=== PATIENT | male | born 1960 | race Caucasian/White ===

== ENCOUNTER 2017-02-12 07:30 | Inpatient (IN) ==
[~2017-02-12 07:30] MED LIST: ACETAMINOPHEN 500 MG TABLET PO ONE; CEFAZOLIN 1 G INJECTION IVP ONE; DEXAMETHASONE 4 MG/ML INJECTION IVP ONE; FAMOTIDINE PB 20 MG/50 ML BAG IV ONE; LIDOCAINE 1% (10mg/ml) 2mL INJ PF SDV ID ONE; MELOXICAM 15 MG TABLET PO ONE; METOCLOPRAMIDE 10mg/2ml INJECTION IVP ONE; NOZIN NASAL SWAB NAS ONE; ONDANSETRON 4 MG/2 ML INJECTION IVP ONE; TRANEXAMIC ACID 1,000 MG in NS 100 ML IV ONE
[2017-02-12] MEDS ORDERED: SALINE FLUSH 10ml SYRINGE IVF PRN (08:11)
[2017-02-12 08:27] VITALS: BMI 28.1
[2017-02-12] MEDS: LR 1,000 ML IV SCH ×2 (08:52→12:00)
[2017-02-12] MEDS ORDERED: ROPIVACAINE 0.5% (5mg/ml) 30ml INJ ONE ×2 (10:29→10:37)
--- NOTE | 2017-02-12 10:34 | Anesthesia Preoperative Report ---
Anesthesia Preoperative Record - Date and Time Date: 02/12/17 Preoperative Diagnosis: Lt ODELL (RA) M16.12 Proposed Procedure: left total hip arthroplasty NPO Since Date: 02/11/17 NPO Since Time: 23:00 Allergies/Adverse Reactions: Allergies Allergy/AdvReac Type Severity Reaction Status Date / Time No Known Allergies Allergy Verified 02/12/17 08:30 - Vital Signs Vital Signs: Temperature 98.4 F 02/12/17 08:26 Pulse Rate 85 02/12/17 08:36 Respiratory Rate 18 02/12/17 08:26 Blood Pressure 132/88 02/12/17 08:26 Pulse Oximetry 95 02/12/17 08:26 Height and Weight: Height 1.87 m Weight 98.1 kg Body Mass Index 28.1 - Medications Inpatient Medications: Current Medications Epinephrine HCl 0.25 mg/Bupivacaine HCl 30 ml/Morphine Sulfate 15 mg/Ketorolac Tromethamine 60 mg/Sodium Chloride 65.25 mls @ 1 mls/hr OPSITE INTRAOP ONE PRN Reason: Protocol Stop: 02/15/17 01:14 Lactated Ringer's (Lactated Ringers) 1,000 mls @ 50 mls/hr IV .Q20H CHARLIE Last Admin: 02/12/17 08:52 Dose: 50 mls/hr Sodium Chloride (Iv Flush) 10 - 80 ml IVF PRN PRN PRN Reason: Flushing Home Medications: Home Medications Medication Instructions Recorded Confirmed Type Ultram (Tramadol) 50 mg tablet 50 mg PO Q6H PRN tab 12/24/16 02/12/17 History Ascorbic Acid [Vitamin C] 2,000 mg PO DAILY 01/19/17 02/12/17 History Multivitamin [One Daily 1 each PO DAILY 01/19/17 02/12/17 History Multivitamin] methylsulfonylmethane 1,000 mg 1,000 mg PO DAILY tab 01/19/17 02/12/17 History tablet turmeric 450 mg-turmeric root 400 cap PO DAILY cap 01/19/17 02/12/17 History extract 50 mg capsule Acetaminophen [Tylenol] 1,000 mg PO Q6HPRN PRN 02/12/17 02/12/17 History Is Patient on Beta Eugenia?: No - Surgical History Cardiac Surgeries/Treatments: Reports: Other (repair traumatic left femoral artery/vein dissection, worked very well ) Anesthesia Reactions: None Hx Family Anesthesia Reaction: Yes (n/v with brother ) - Social History Smoking Status: Former smoker - Pertinent Findings EKG Rhythm: Normal Sinus Rhythm - Physical Exam Respiratory Exam: Present: lungs clear, bilateral breath sounds equal Cardiovascular Exam: Present: regular rate and rhythm, no murmur - Airway Assessment Mallampati Score: I TMD: 3 Fingerbreadths Overall Assessment: no airway concerns - ASA ASA Score: 1 - Plan Anesthesia: General Inhalation Gases Regional/Trunk Block: Spinal - Discussion Discussion: Discussed risks/options/alternatives of anesthesia and questions answered. Patient consents. Nursing pain assessment noted. Attestation Statement: Prior to the delivery of any anesthetic medication, I examined the patient, developed the plan, obtained the patient's consent and discussed the risk and benefits of the procedure with the patient/guardian.
[2017-02-12] MEDS ORDERED: FentaNYL 100 MCG/2 ML INJECTION ONE ×2 (10:43→11:01)
[2017-02-12] MEDS ORDERED: MIDAZOLAM 2mg/2ml INJECTION ONE ×2 (10:44→11:01)
[2017-02-12] MEDS ORDERED: SALINE FLUSH 10ml SYRINGE ONE (10:46)
[2017-02-12] MEDS ORDERED: KETAMINE 500 MG/10 ML INJECTION ONE (11:01)
[2017-02-12] MEDS ORDERED: LIDOCAINE 2% (100mg/5mL) PF 5ml vl ONE (11:01)
[2017-02-12] MEDS ORDERED: PROPOFOL 20 ML ONE (11:01)
[2017-02-12] MEDS: EPINEPHrine 0.25 MG, BUPIVACAINE 0.25% PF 30 ML, MORPHINE SULFATE 15 MG, KETOROLAC INJ ... OPSITE ONE ×2 (12:57→14:24)
[2017-02-12] MEDS ORDERED: VANCOMYCIN 1,000 MG INJECTION IAR ONE ×2 (13:00→13:38)
--- NOTE | 2017-02-12 13:16 | Operative Note ---
- Procedure Side: left Preoperative Diagnosis: hip primary DJD Postoperative Diagnosis: Same as preoperative diagnosis. Operation: total hip arthroplasty Surgeon: Stephanie Youngblood MD Display Card Writer: Sourav Gold Complications: None. Regional/Trunk Block: Spinal Estimated Blood Loss: See Anesthesia Record. Fluids: Please see Anesthesia Record. Description of Procedure: Mr. Pickens and his right hip were identified and marked in the preoperative holding area. He was brought back to the operating suite and spinal anesthetic was administered. He was then placed in a lateral decubitus position with his right hip up. The right lower extremity was prepped and draped in my normal sterile fashion. Timeout was performed. The [employer] robotic arm was used to assist with the surgery. Surgery was made more difficult by the patient's robust musculature. A direct superior approach was utilized. An approximately 12 cm incision was made in the skin and dissection carried down to the muscle fascia which was then split in line with skin incision. A checkpoint was placed in the greater trochanter. The short external rotators were identified and tagged and detached. A capsulotomy was performed and the hip dislocated. A femoral neck osteotomy was performed at the pre- templated level measuring down from the femoral head. The head was removed and acetabulum exposed. Labrum was removed. A checkpoint was placed superior to the acetabulum. The acetabulum was then registered with the robot. The robotic arm was then used to ream with a 61 reamer. The robot then was again used to place a 62 Trident cup in 40 of tilt and 25 of anteversion. A liner was then placed. The proximal femur was exposed and prepared with a cookie cutter followed by reaming and broaching to a size 6. We trialed with a 0 head. After thorough irrigation a final Accolade 2 size 6 stem with 127 neck was placed. Leg length and offset were checked with the robot. He was 3 mm long compared to the opposite hip which was acceptable given his right hip is arthritic as well. A final standard ceramic head was placed and the hip reduced. Betadine solution was used to irrigate throughout the case. It was followed by normal saline irrigation. Joint cocktail was injected throughout soft tissue. The capsulotomy was repaired with Ethibond. Short external rotators were also repaired with Ethibond. 1 g of vancomycin powder was placed into the wound. The muscle fascia was then repaired with #1 Vicryl. I then left my system to close the subcutaneous tissue with 2-0 Vicryl followed by running 4-0 Monocryl skin followed by Dermabond and a sterile dressing. The patient with any placed back into supine position and taken to recovery room in the care of anesthesia.
--- NOTE | 2017-02-12 13:27 | History & Physical Update ---
- History and Physical Update Date: 02/12/17 Update: I evaluated this patient and found no changes in the history and clinical exam findings. The treatment plan and recommendations are also unchanged from the previous documentation.
[2017-02-12] MEDS ORDERED: DiphenhydrAMINE 25 MG CAPSULE PO PRN (14:29)
[2017-02-12] MEDS ORDERED: NOZIN NASAL SWAB NAS ONE (14:29)
[2017-02-12] MEDS ORDERED: DiphenhydrAMINE 50 MG/ML INJECTION IVP PRN (14:29)
[2017-02-12] MEDS ORDERED: LORazepam 1 MG TABLET PO PRN (14:29)
[2017-02-12] MEDS ORDERED: ONDANSETRON 4 MG/2 ML INJECTION IVP PRN (14:29)
[2017-02-12] MEDS: NS 1,000 ML IV SCH (14:31)
--- NOTE | 2017-02-12 15:02 | Anesthesia Postoperative Note ---
- Date and Time Date: 02/12/17 Time: 14:40 - Status Patient Participated in Evaluation: Patient Participated in Person Vital Signs: Temperature 98.0 F 02/12/17 14:20 Pulse Rate 80 02/12/17 14:20 Respiratory Rate 18 02/12/17 14:20 Blood Pressure 114/63 02/12/17 14:20 Pulse Oximetry 95 02/12/17 14:20 Respiratory Function: Airway Patent Cardiovascular Function: Regular Pulse EKG Rhythm: Normal Sinus Rhythm Mental Status: Alert and Oriented Pain Intensity: 0 Hydration: IV Infusing Complications During Recover: None Apparent - Follow-Up Instructions Instructions: Per Surgeon
[2017-02-12] MEDS: NOZIN NASAL SWAB NAS SCH ×2 (15:41→22:10)
--- NOTE | 2017-02-12 15:53 | XRay Report ---
Indication: postoperative image PROCEDURE: XR pelvis w/ 1 view LT hip: Encounter: Initial Comparison: December 24, 2016 Findings: Postoperative changes of left total hip replacement are seen. There is expected postoperative subcutaneous gas. No evidence of hardware failure or acute fracture. No retained radiopaque surgical instruments or sponges seen. Moderate joint space narrowing in the right hip. Impression: New left total hip prosthesis without evidence of immediate complication. .
[2017-02-12] MEDS: ACETAMINOPHEN 325 MG TABLET PO SCH ×2 (16:47→22:10)
[2017-02-12] MEDS: Oxycodone *IR* 5 MG TABLET PO PRN ×3 (16:47→22:09)
[2017-02-12] MEDS: CEFAZOLIN 2 G in NS 100 ML IV SCH (18:41)
[2017-02-12] MEDS ORDERED: SENNOSIDES 8.6 MG TABLET PO SCH (21:00)
[2017-02-12] MEDS: DOCUSATE SODIUM 100 MG CAPSULE PO SCH (22:09)
[2017-02-12] MEDS: ASPIRIN *EC* 325 MG TABLET PO SCH (22:10)
[2017-02-13] MEDS: CEFAZOLIN 2 G in NS 100 ML IV SCH (02:44)
[2017-02-13] MEDS: Oxycodone *IR* 5 MG TABLET PO PRN ×4 (03:14→14:03)
[2017-02-13] MEDS: NS 1,000 ML IV SCH (04:23)
[2017-02-13] MEDS: NOZIN NASAL SWAB NAS SCH ×2 (06:08→13:39)
[2017-02-13] MEDS ORDERED: MELOXICAM 15 MG TABLET PO SCH (09:00)
[2017-02-13] MEDS ORDERED: ASCORBIC ACID 500 MG TABLET PO SCH (09:00)
[2017-02-13] MEDS ORDERED: POLYETHYL GLYCOL 3350 17gm PACKET PO SCH (09:00)
[2017-02-13] MEDS ORDERED: METHYLSULFONYLMETHANE 1000 MG PO SCH (09:00)
--- NOTE | 2017-02-13 09:09 | Orthopedic Progress Note ---
Date: Subjective/Severity of Illness: Kevan is doing great. He has no pain or concerns at this time. He has been mobile with good tolerance. Denies CP, cough or SOA. Orthopedic Objective PO Vital signs: Temperature 98.6 F 02/13/17 08:00 Pulse Rate 94 02/13/17 08:00 Respiratory Rate 16 02/13/17 08:00 Blood Pressure 137/81 02/13/17 08:00 Pulse Oximetry 94 02/13/17 08:00 Height and Weight: Height 6 ft 1.5 in Weight 216 lb 4.375 oz Body Mass Index 28.1 - Constitutional General Appearance: Present: alert, no acute distress - Respiratory Exam Present: non-labored - Cardiovascular Exam Present: pedal pulses intact Capillary Refill: < 2-3 Seconds - Extremities Exam Extremities: Present: pulses intact. Absent: calf tenderness - Surgical Site Incision: Mepilex dressing intact, dressing intact, no drainage - Integumentary Exam Present: pink, warm, dry - Neurological Exam Present: no deficits - Psychiatric Exam Present: alert, normal affect - Labs Result Diagrams: 02/13/17 04:08 02/13/17 04:08 Abnormal lab results 02/13/17 02/13/17 Range/Units 04:08 04:08 WBC 14.0 H (4.5-11.0) T/MM3 RBC 4.12 L (4.50-5.90) M/MM3 Hgb 11.7 L (13.5-17.5) GM/DL Hct 34.3 L (41-53) % RDW Std Deviation 36.7 L (36.9-50.2) FL BUN 22.0 H (9-20) MG/DL H & H 02/13/17 Range/Units 04:08 Hgb 11.7 L (13.5-17.5) GM/DL Hct 34.3 L (41-53) % Orthopedic Assessment and Plan (1) Primary osteoarthritis of left hip Status: Acute Assessment and Plan: Current anti-coagulation protocol for VTE prophylaxis. SCD's. PT/OT services to improve independent function. Discharge Planning per Case Management. - Anticoagulation Therapy Anticoagulation: ASA 325 mg PO BID x6 weeks Hospital Course Summary Disclaimer: The visit summary below is not to be considered part of the above Progress Note.
[2017-02-13] MEDS: DOCUSATE SODIUM 100 MG CAPSULE PO SCH (09:52)
[2017-02-13] MEDS: ASPIRIN *EC* 325 MG TABLET PO SCH (09:52)
[2017-02-13] MEDS: ACETAMINOPHEN 325 MG TABLET PO SCH ×2 (09:53→13:39)
[2017-02-13 11:47] VITALS: BP 148/89; PULSE 88; RESP 18; TEMP 97.8; O2SAT 92
--- NOTE | 2017-02-13 12:29 | Discharge Summary ---
Orthopedic Discharge Info Date of admission: 02/12/17 08:05 Primary care physician: Safia You APRN Attending Physician: Harris Youngblood MD Consults: 02/12/17 08:11 Consult to Anesthesiology [CONS] Routine Consulting Provider: BLUE Meza Reason For Exam: Preoperative Assessment 02/12/17 14:29 Case Management Consult [CONS] Routine Reason For Exam: Discharge Planning DME-Walker [CONS] Routine Height: 6 ft 1.5 in Weight: 216 lb 4.375 oz Comment: change dressing in 2 weeks Total Joint Outpatient Therapy [CONS] Routine Comment: change dressing in 2 weeks - Discharge Diagnosis (1) Primary osteoarthritis of left hip Status: Acute - Procedures Procedures: Left ODELL - Laboratory Result Diagrams: 02/13/17 04:08 02/13/17 04:08 Laboratory: Abnormal lab results 02/13/17 02/13/17 Range/Units 04:08 04:08 WBC 14.0 H (4.5-11.0) T/MM3 RBC 4.12 L (4.50-5.90) M/MM3 Hgb 11.7 L (13.5-17.5) GM/DL Hct 34.3 L (41-53) % RDW Std Deviation 36.7 L (36.9-50.2) FL BUN 22.0 H (9-20) MG/DL H & H 02/13/17 Range/Units 04:08 Hgb 11.7 L (13.5-17.5) GM/DL Hct 34.3 L (41-53) % Orthopedic Discharge HPI - HPI Comments This patient was admitted for elective surgical tx of end stage degenerative joint disease that failed to respond to conservative treatment. Further details of this is found in the admission H&P. Orthopedic Hospital Course Hospital course: 02/13/17 12:25 After appropriate preoperative clearance and signing of operative consent, the patient was given IV antibiotics, according to orthopedic protocol. The patient was taken to the operating room and underwent elective joint arthroplasty. Following surgery, antibiotics were discontinued less than 24 hours according to joint protocol. Appropriate anticoagulants were initiated and SCDs added for DVT prevention. The dressing was clean, dry, and intact. Pain control was obtained via multimodal approach. Bowel motivation addressed with scheduled and PRN medications. Early mobilization was initiated through PT services. Discharge arrangements made by a collaborative effort between the patient and Case Management. Follow-up is scheduled in 2-3 weeks. Discharge instructions given by orthopedic providers and nursing staff at discharge. Discharge condition was good. Ongoing care required?: No - Postoperative Anemia patient received IVF, labs monitored daily, no intervention required, HGB drop- acceptable - Leukocytosis due to preoperative IV Decadron Discharge Plan - Med Rec/Dispo Referrals/Follow Up: Harris Youngblood MD [Physician] - 03/09/17 11:15 am Additional Instructions: [facility] ON 02/17/2017 AT 3:00PM FOR PHYSICAL THERAPY EVAL. PHONE Prescriptions: New Acetaminophen [Tylenol] 650 mg PO QID #100 tab Aspirin *EC* [Ecotrin] 325 mg PO BID #84 tab Oxycodone *Ir* [Roxicodone *Ir*] 5 - 15 mg PO Q3H PRN #60 tab PRN Reason: Breakthrough Pain Continue Multivitamin [One Daily Multivitamin] 1 each PO DAILY Ascorbic Acid [Vitamin C] 2,000 mg PO DAILY Mobic (Meloxicam) 15 mg tablet 15 mg PO DAILY #30 tab turmeric 450 mg-turmeric root extract 50 mg capsule 400 cap PO DAILY cap methylsulfonylmethane 1,000 mg tablet 1,000 mg PO DAILY tab Discontinued Acetaminophen [Tylenol] 1,000 mg PO Q6HPRN PRN PRN Reason: Pain Ultram (Tramadol) 50 mg tablet 50 mg PO Q6H PRN tab PRN Reason: Pain - Disposition 01 Discharged Home, Self-Care
[2017-02-13] MEDS ORDERED: SENNOSIDES 8.6 MG TABLET PO PRN (13:30)
[2017-02-14] MEDS ORDERED: BISACODYL 10 MG SUPPOSITORY RECTALLY SCH (20:00)
== END 2017-02-13 14:10 | disposition home or self-care (01) | DRG 470 ==
LOC: SRG 08:05
PROVIDERS: ADMIT Orthopaedic Surgery; ATTEND Orthopaedic Surgery

== ENCOUNTER 2017-09-08 07:30 | Inpatient (IN) ==
[~2017-09-08 07:30] MED LIST changes: -CEFAZOLIN 1 G INJECTION IVP ONE; -NOZIN NASAL SWAB NAS ONE
[2017-09-08] MEDS ORDERED: EPINEPHrine PF 0.25 MG, BUPIVACAINE 0.25% PF 30 ML, KETOROLAC INJ 60 MG in NS 30 ML OPSITE ONE (08:00)
[2017-09-08 09:31] VITALS: BMI 27.7
[2017-09-08] MEDS: LR 1,000 ML IV SCH ×3 (09:45→13:29)
[2017-09-08] MEDS: NOZIN NASAL SWAB NAS SCH ×5 (09:53→21:36)
[2017-09-08] MEDS ORDERED: SALINE FLUSH 10ml SYRINGE IV PRN (09:54)
--- NOTE | 2017-09-08 10:49 | Anesthesia Preoperative Report ---
Anesthesia Preoperative Record - Date and Time Date: 09/08/17 Preoperative Diagnosis: Rt ODELL M16.11 primary osteoarthritis Proposed Procedure: right total hip NPO Since Date: 09/07/17 NPO Since Time: 23:00 Allergies/Adverse Reactions: Allergies Allergy/AdvReac Type Severity Reaction Status Date / Time No Known Allergies Allergy Verified 09/08/17 09:35 - Vital Signs Vital Signs: Temperature 97.9 F 09/08/17 09:30 Pulse Rate 80 09/08/17 09:30 Respiratory Rate 13 09/08/17 09:30 Blood Pressure 144/91 H 09/08/17 09:30 Pulse Oximetry 99 09/08/17 09:30 Height and Weight: Height 1.83 m Weight 92.8 kg Body Mass Index 27.7 - Medications Inpatient Medications: Current Medications Cefazolin Sodium (Kefzol) 2 g IVP PREOP ONE Stop: 09/08/17 11:31 Lactated Ringer's (Lactated Ringers) 1,000 mls @ 50 mls/hr IV .Q20H CHARLIE Last Admin: 09/08/17 09:45 Dose: 50 mls/hr Sodium Chloride (Iv Flush) 10 - 80 ml IV PRN PRN PRN Reason: [place] Home Medications: Home Medications Medication Instructions Recorded Confirmed Type Ascorbic Acid [Vitamin C] 2,000 mg PO DAILY 01/19/17 09/08/17 History Advil (Ibuprofen) 200 mg tablet 400 mg PO Q5H PRN 03/17/17 09/08/17 History calcium carbonate-vitamin 2 tab PO BID 03/17/17 09/08/17 History D2-minerals tablet folic acid-vit B6-vit B12 0.5 mg-5 1 tab PO DAILY tab 03/17/17 09/08/17 History mg-0.2 mg tablet multivitamin tablet 1 tab PO DAILY tab 03/17/17 09/08/17 History turmeric 450 mg-turmeric root 1 cap PO DAILY cap 03/17/17 09/08/17 History extract 50 mg capsule vitamin K2 40 mcg tablet 40 mcg PO BID tab 03/17/17 09/08/17 History ergocalciferol (vitamin D2) 50,000 50,000 unit PO DAILY #2 cap 07/01/17 Rx unit capsule Acetaminophen [Tylenol] 650 mg PO QID PRN 09/01/17 09/08/17 History Tramadol [Ultram] 50 mg PO Q6H PRN 09/01/17 09/08/17 History - Medical History Respiratory: Reports: Pneumonia (in his teens) DENIES: Sleep Apnea Neuro/Musculoskeletal: Reports: HX.MS.OSAR (hips & knees), Back Problems (due to hip ) Other History: Reports: Blood Transfusions - Surgical History Cardiac Surgeries/Treatments: Reports: Other (repair traumatic left femoral artery/vein dissection) Musculoskeletal Surgery/Tx: Reports: Total Hip Replacement (Lt ODELL ) Anesthesia Reactions: None Hx Family Anesthesia Reaction: Yes (n/v with brother ) - Social History Smoking Status: Former smoker Substance Use Type: does not use Alcohol Intake Frequency: a few times a month - Pertinent Findings EKG: Sinus Rhythm - Physical Exam Respiratory Exam: Present: lungs clear, bilateral breath sounds equal Cardiovascular Exam: Present: regular rate and rhythm, no murmur - Airway Assessment Mallampati Score: I TMD: 3 Fingerbreadths Neck Extension: good Overall Assessment: no airway concerns - ASA ASA Score: 2 - Plan Anesthesia: General Inhalation Gases Regional/Trunk Block: Spinal - Discussion Discussion: Discussed risks/options/alternatives of anesthesia and questions answered. Patient consents. Nursing pain assessment noted. Attestation Statement: Prior to the delivery of any anesthetic medication, I examined the patient, developed the plan, obtained the patient's consent and discussed the risk and benefits of the procedure with the patient/guardian. - Additional Information Seen by Anesthesia: Yes
[2017-09-08] MEDS ORDERED: VANCOMYCIN 1,000 MG INJECTION ONE (10:53)
[2017-09-08] MEDS ORDERED: FentaNYL 250 MCG/5 ML INJECTION ONE ×4 (11:12→18:44)
[2017-09-08] MEDS ORDERED: MIDAZOLAM 2mg/2ml INJECTION ONE (11:12)
[2017-09-08] MEDS ORDERED: LIDOCAINE 2% (100mg/5mL) 5ml PF SDV ONE (11:13)
[2017-09-08] MEDS ORDERED: PROPOFOL 0 ML ONE ×2 (11:22→16:12)
[2017-09-08] MEDS ORDERED: KETAMINE 500 MG/10 ML INJECTION ONE ×2 (11:23→16:12)
[2017-09-08] MEDS ORDERED: CEFAZOLIN 1 G INJECTION IVP ONE (11:30)
[2017-09-08] MEDS ORDERED: VANCOMYCIN 1,000 MG INJECTION IAR ONE (12:22)
[2017-09-08] MEDS ORDERED: FentaNYL 100 MCG/2 ML INJECTION IVP PRN (12:23)
--- NOTE | 2017-09-08 12:56 | Operative Note ---
- Procedure Preoperative Diagnosis: Right hip primary degenerative joint disease Postoperative Diagnosis: Same as preoperative diagnosis. Surgeon: Stephanie Youngblood MD Director Data Architecture: Sourav Gold Complications: None. Anesthesia: Spinal. Estimated Blood Loss: See Anesthesia Record. Fluids: Please see Anesthesia Record. Description of Procedure: Mr. Pickens and his right hip were identified and marked in the preoperative holding area. He was brought back to the operating suite and spinal anesthetic was administered. He was then placed in a lateral decubitus position with his right hip up. The right lower extremity was prepped and draped in my normal sterile fashion. Timeout was performed. The [employer] robotic arm was used to assist with the surgery. A pelvic array was placed into the iliac crest through three small incisions. A direct superior approach was utilized. An approximately 13 cm incision was made in the skin and dissection carried down to the muscle fascia which was then split in line with skin incision. The short external rotators were identified and tagged and detached. A capsulotomy was performed and the hip dislocated. A femoral neck osteotomy was performed at the pre-templated level measuring down from the femoral head. The head was removed and acetabulum exposed. He has severe disease on the femoral head as well as in the acetabulum. He had a large anterior degenerative labral tear. The acetabulum was then registered with the robot. The robotic arm was then used to ream with a 57 reamer. The robot then was again used to place a 58 Trident cup in 40 of tilt and 22 of anteversion. A liner was then placed. The proximal femur was exposed and prepared with a cookie cutter followed by reaming and broaching to a size 6. We trialed with a standard head. After thorough irrigation a final Accolade 2 size 6 stem with 0.7 neck was placed. According to the robot the standard head made his leg 4 mm longer than then preoperatively but with the standard head he did not fill too tight he had a good shuck and he had more internal rotation at 90 of flexion then with a -2.5 head. A final standard ceramic 36 mm head was placed and the hip reduced. Betadine solution was used to irrigate throughout the case. It was followed by normal saline irrigation. Joint cocktail was injected throughout soft tissue. The capsulotomy was repaired with Ethibond. Short external rotators were also repaired with Ethibond. 1 g of vancomycin powder was placed into the wound. The muscle fascia was then repaired with #1 Vicryl. I then left my general assistant to close the subcutaneous tissue with 2-0 Vicryl followed by running 4-0 Monocryl skin followed by Dermabond and a sterile dressing. The patient with any placed back into supine position and taken to recovery room in the care of anesthesia.
[2017-09-08] MEDS ORDERED: DiphenhydrAMINE 25 MG CAPSULE PO PRN (13:44)
[2017-09-08] MEDS ORDERED: KETOROLAC 15 MG/ML INJECTION IVP PRN (13:44)
[2017-09-08] MEDS ORDERED: ONDANSETRON 4 MG/2 ML INJECTION IVP PRN (13:44)
[2017-09-08] MEDS ORDERED: LORazepam 1 MG TABLET PO PRN (13:44)
[2017-09-08] MEDS ORDERED: DiphenhydrAMINE 50 MG/ML INJECTION IVP PRN (13:44)
[2017-09-08] MEDS ORDERED: NOZIN NASAL SWAB NAS ONE (13:44)
[2017-09-08] MEDS: NS 1,000 ML IV SCH (14:00)
--- NOTE | 2017-09-08 14:33 | XRay Report ---
Indication: postoperative image PROCEDURE: XR pelvis w/ 1 view RT hip: Encounter: Initial Comparison: March 30, 2017 Findings: Postoperative changes of right total hip replacement are seen. There is expected postoperative subcutaneous gas. No evidence of hardware failure or acute fracture. No retained radiopaque surgical instruments or sponges seen. Existing left hip prosthesis is stable and intact. Impression: New right total hip prosthesis without evidence of immediate complication. .
[2017-09-08] MEDS: ACETAMINOPHEN 325 MG TABLET PO SCH ×3 (14:56→21:34)
[2017-09-08] MEDS ORDERED: LIDOCAINE 4% Laryng-O-Jet (160mg/4mL) KIT MM ONE (16:05)
[2017-09-08] MEDS ORDERED: ROCURONIUM 50 MG/5 ML INJECTION IVP ONE ×2 (16:12→17:16)
[2017-09-08] MEDS ORDERED: ONDANSETRON 4 MG/2 ML INJECTION ONE ×2 (16:34→18:25)
[2017-09-08] MEDS ORDERED: DEXAMETHASONE 4 MG/ML INJECTION ONE (16:34)
[2017-09-08] MEDS ORDERED: DiphenhydrAMINE 50 MG/ML INJECTION ONE (17:08)
[2017-09-08] MEDS: TRAMADOL 50 MG TABLET PO PRN ×2 (17:36→23:21)
[2017-09-08] MEDS ORDERED: PROPOFOL 20 ML ONE (18:51)
[2017-09-08] MEDS: CEFAZOLIN 2 G in NS 50 ML IV SCH (19:53)
[2017-09-08] MEDS ORDERED: SENNOSIDES 8.6 MG TABLET PO SCH (21:00)
[2017-09-08] MEDS: DOCUSATE SODIUM 100 MG CAPSULE PO SCH (21:34)
[2017-09-08] MEDS: ASPIRIN *EC* 81 MG TABLET PO SCH (21:35)
[2017-09-08] MEDS: NAPROXEN 220 MG TABLET PO SCH (23:20)
[2017-09-09] MEDS: TRAMADOL 50 MG TABLET PO PRN ×3 (01:33→12:41)
[2017-09-09] MEDS: NS 1,000 ML IV SCH (03:25)
[2017-09-09] MEDS: CEFAZOLIN 2 G in NS 50 ML IV SCH (03:28)
[2017-09-09 04:05] VITALS: RESP 16
[2017-09-09] MEDS: NOZIN NASAL SWAB NAS SCH ×2 (06:06→12:41)
--- NOTE | 2017-09-09 08:26 | Orthopedic Progress Note ---
Date: Date: 09/09/17 Time: 822 Subjective/Severity of Illness: Kevan is sitting up in his chair when Dr. Youngblood and I visit. Pain has been well controlled, he has been up ambulating well. Denies any concerns this morning. Orthopedic Exam Vital signs: Temperature 97.9 F 09/09/17 08:03 Pulse Rate 91 09/09/17 08:03 Respiratory Rate 16 09/09/17 08:03 Blood Pressure 140/90 H 09/09/17 08:03 Pulse Oximetry 98 09/09/17 08:03 - Constitutional General Appearance: Present: alert, orientated x3, cooperative - Respiratory Exam Present: non-labored - Cardiovascular Exam Present: pedal pulses intact - Extremities Exam Present: no edema, pulses intact. Absent: calf tenderness - Dressing Dressing: dry, intact Comments: mepilex dressing c/d/i - Neurological Exam Present: intact to light touch, no deficits - Labs Result Diagrams: 09/09/17 04:34 09/09/17 04:34 Abnormal lab results 09/09/17 09/09/17 Range/Units 04:34 04:34 Hgb 12.5 L (13.5-17.5) GM/DL Hct 36.5 L (41-53) % Glucose 114 H (75-110) MG/DL H & H 09/09/17 Range/Units 04:34 Hgb 12.5 L (13.5-17.5) GM/DL Hct 36.5 L (41-53) % Orthopedic Assessment and Plan (1) Primary osteoarthritis of right hip Status: Acute Assessment and Plan: Current anti-coagulation protocol with ASA 81mg BID and SCDs for VTE prophylaxis. PT/OT services to improve independent function. Discharge Planning per Case Management. - Anticoagulation Therapy Anticoagulation: ASA 81 mg PO BID x6 weeks Hospital Course Summary Disclaimer: The visit summary below is not to be considered part of the above Progress Note.
[2017-09-09] MEDS: NAPROXEN 220 MG TABLET PO SCH (08:45)
[2017-09-09] MEDS: DOCUSATE SODIUM 100 MG CAPSULE PO SCH (08:46)
[2017-09-09] MEDS: ACETAMINOPHEN 325 MG TABLET PO SCH ×2 (08:46→12:41)
[2017-09-09] MEDS: ASPIRIN *EC* 81 MG TABLET PO SCH (08:46)
[2017-09-09] MEDS ORDERED: POLYETHYL GLYCOL 3350 17gm PACKET PO SCH (09:00)
[2017-09-09 11:43] VITALS: BP 161/85; PULSE 79; TEMP 96.6; O2SAT 96
[2017-09-09] MEDS ORDERED: SENNOSIDES 8.6 MG TABLET PO PRN (12:46)
--- NOTE | 2017-09-09 13:25 | Discharge Summary ---
Orthopedic Discharge Info Date of admission: 09/08/17 09:14 Primary care physician: Safia You APRN Attending Physician: Harris Youngblood MD Consults: 09/08/17 09:22 Consult to Anesthesiology [CONS] Routine Reason For Exam: Preoperative Assessment 09/08/17 13:44 Case Management Consult [CONS] Routine Reason For Exam: Discharge Planning DME-Walker [CONS] Routine Height: 6 ft Weight: 204 lb 9.423 oz Total Joint Outpatient Therapy [CONS] Routine Comment: Remove dressing in 2 weeks - Discharge Diagnosis (1) Primary osteoarthritis of right hip Status: Acute - Procedures Procedures: Procedures Right ODELL - Laboratory Result Diagrams: 09/09/17 04:34 09/09/17 04:34 Laboratory: Abnormal lab results 09/09/17 09/09/17 Range/Units 04:34 04:34 Hgb 12.5 L (13.5-17.5) GM/DL Hct 36.5 L (41-53) % Glucose 114 H (75-110) MG/DL H & H 09/09/17 Range/Units 04:34 Hgb 12.5 L (13.5-17.5) GM/DL Hct 36.5 L (41-53) % Orthopedic Discharge HPI - HPI Comments Risks and benefits of the recommended procedure were discussed with the patient and/or patient's legal open claims representative. They include: infection, nerve damage, artery damage, stroke, CA, PE, DVT, ileus, continued pain, or risk that the injury may not heal despite surgery. There are also medical risks of anesthesia. Risks are not limited to the above mentioned alone. Orthopedic Hospital Course Hospital course: 09/09/17 13:20 After appropriate preoperative clearance and signing of operative consent, the patient was given IV antibiotics, according to orthopedic protocol. The patient was taken to the operating room and underwent elective joint arthroplasty. Following surgery, antibiotics were discontinued less than 24 hours according to joint protocol. Appropriate anticoagulants were initiated and SCDs added for DVT prevention. The dressing was clean, dry, and intact. Pain control was obtained via multimodal approach. Bowel motivation addressed with scheduled and PRN medications. Early mobilization was initiated through PT services. Discharge arrangements made by a collaborative effort between the patient and Case Management. Follow-up is scheduled in 2-3 weeks. Discharge instructions given by orthopedic providers and nursing staff at discharge. Discharge condition was good. Care extended to > 2 midnight stays?: No Discharge Plan - Med Rec/Dispo Referrals/Follow Up: Harris Youngblood MD [Physician] - 09/30/17 9:15 am Igor Instructions: [facility] [place] Ortho Postop Instructions Additional Instructions: [facility] ON 09/10/2017 AT 1:50PM FOR PHYSICAL THERAPY EVAL. PHONE Prescriptions: New Aspirin *EC* [Ecotrin] 81 mg PO BID tab Milk of Magnesia [Mom] 30 ml PO DAILY udc Naproxen [Aleve (Naproxen) 220 mg] 440 mg PO BID tab PEG 3350 17gm PACKET [Miralax] 17 gm PO DAILY packet Sennosides [Senna Lax] 17.2 mg PO DAILY PRN tab PRN Reason: Constipation Tramadol [Ultram] 50 - 100 mg PO Q6H PRN #30 tab PRN Reason: Pain Hydrocodone/APAP 5/325 [[place] 5/325] 1 tab PO Q4H PRN #30 tab PRN Reason: pain Docusate Sodium [Colace] 100 mg PO BID cap Continue Ascorbic Acid [Vitamin C] 2,000 mg PO DAILY Tramadol [Ultram] 50 mg PO Q6H PRN PRN Reason: Pain Acetaminophen [Tylenol] 650 mg PO QID PRN PRN Reason: Pain turmeric 450 mg-turmeric root extract 50 mg capsule 1 cap PO DAILY cap folic acid-vit B6-vit B12 0.5 mg-5 mg-0.2 mg tablet 1 tab PO DAILY tab vitamin K2 40 mcg tablet 40 mcg PO BID tab multivitamin tablet 1 tab PO DAILY tab ergocalciferol (vitamin D2) 50,000 unit capsule 50,000 unit PO DAILY #2 cap Discontinued Advil (Ibuprofen) 200 mg tablet 400 mg PO Q5H PRN PRN Reason: Pain No Action calcium carbonate-vitamin D2-minerals tablet 2 tab PO BID - Disposition 01 Discharged Home, Self-Care - Dismissal Complete Discharge Instructions are:: Complete
--- NOTE | 2017-09-09 13:29 | Orthopedic Progress Note ---
Date: Date: 09/09/17 Time: 1326 Subjective/Severity of Illness: Kevan feels ready to discharge today. His pain is reasonably controlled with Ultram, but when he is active it is elevated. He has done well with [place] in the past. He is adequately ambulatory, denies chest pain or shortness of breath , or calf pain. Orthopedic Exam Vital signs: Temperature 97.9 F 09/09/17 08:03 Pulse Rate 91 09/09/17 08:03 Respiratory Rate 16 09/09/17 08:03 Blood Pressure 140/90 H 09/09/17 08:03 Pulse Oximetry 98 09/09/17 08:03 - Constitutional General Appearance: Present: alert, orientated x3, cooperative - Respiratory Exam Present: non-labored - Cardiovascular Exam Present: pedal pulses intact - Extremities Exam Present: no edema, pulses intact. Absent: calf tenderness - Dressing Dressing: dry, intact - Integumentary Exam Present: pink, warm, dry - Neurological Exam Present: intact to light touch, no deficits - Labs Result Diagrams: 09/09/17 04:34 09/09/17 04:34 Abnormal lab results 09/09/17 09/09/17 Range/Units 04:34 04:34 Hgb 12.5 L (13.5-17.5) GM/DL Hct 36.5 L (41-53) % Glucose 114 H (75-110) MG/DL H & H 09/09/17 Range/Units 04:34 Hgb 12.5 L (13.5-17.5) GM/DL Hct 36.5 L (41-53) % Orthopedic Assessment and Plan (1) Primary osteoarthritis of right hip Status: Acute Assessment and Plan: Current anti-coagulation protocol with ASA 81mg BID and SCDs for VTE prophylaxis. PT/OT services to improve independent function. Discharge Planning per Case Management. Silver[place] will be added to his discharge pain routine. He was advised to take [place] or Ultram, but not both together. - Anticoagulation Therapy Anticoagulation: ASA 81 mg PO BID x6 weeks Hospital Course Summary Disclaimer: The visit summary below is not to be considered part of the above Progress Note.
[2017-09-10] MEDS ORDERED: BISACODYL 10 MG SUPPOSITORY RECTALLY SCH (20:00)
== END 2017-09-09 14:15 | disposition home or self-care (01) | DRG 470 ==
LOC: NMC.PERIOP 09:14 → SRG 13:50
PROVIDERS: ADMIT Orthopaedic Surgery; ATTEND Orthopaedic Surgery